=== PATIENT | female | born 1950 | race African-American/Black ===

== ENCOUNTER 2017-06-02 07:39 | Outpatient (CLI) | payer OTHER, MEDICARE ==
[2017-06-02] MEDS ORDERED: LIDOCAINE 1%, 20 ML MDV 20 ML ONE (07:52)
[2017-06-02] MEDS ORDERED: IOHEXOL 50 ML IV ONE (07:52)
[2017-06-02] MEDS ORDERED: BUPIVACAINE /PF 0.25% 30 ML VIAL INJ ONE (07:57)
[2017-06-02] MEDS ORDERED: methylPREDNISolone ACETATE 80 MG/ML ONE (07:58)
[2017-06-02] MEDS ORDERED: NS 0 ML IV ONE (08:01)
== END 2017-06-02 18:58 | disposition home or self-care (01) ==
LOC: SRD 07:39
PROVIDERS: ATTEND Orthopaedic Surgery
PROC: BQ00YZZ Plain Radiography of Right Hip using Other Contrast (ICD-10-PCS; principal; 2017-06-02)
DX: M25.551 Pain in right hip (principal)
CPT/HCPCS: 27093; 73525; J1040; J2001; J3490; Q9967

== ENCOUNTER 2022-06-18 11:39 | Emergency (ER) | payer OTHER, MEDICARE ==
[~2022-06-18] VITALS: Ht 162.6 cm; Wt 69.4 kg
[2022-06-18 11:51] VITALS: BP_SYST 102
--- NOTE | 2022-06-18 12:10 | NUR ---
RECEIVED PT FROM CONSTANTIN VILLALTA. PT JUAN RAWLS FOR SYCOPE EPISODE, UNWITNESSED. PT IS AAOX4. ON R/A. DENIES N/V/D/C. NORMAL S1S2 NOTED. SKIN INTACT. DISTAL PULSES NORMAL. SIDERAILS UP X2. PT PLACED ON TELEMONITOR. VSS. AT BEDSIDE.
--- NOTE | 2022-06-18 12:12 | NUR ---
DR. BECK AT BEDSIDE TO ASSESS PT.
[2022-06-18 12:20] LABS: BASOPHILS % (AUTO) 0.8 % (0.0-2.0); EOSINOPHILS # (AUTO) 0.1 K/uL (0.0-0.4); EOSINOPHILS % (AUTO) 2.2 % (0.0-4.0); HEMATOCRIT 37.4 % (36-48); HEMOGLOBIN 12.4 g/dL (12.0-16.0); LYMPHOCYTES # (AUTO) 0.8 K/uL (1.0-5.5); LYMPHOCYTES % (AUTO) 22.1 % (20.5-51.5); MEAN CORPUSCULAR HEMOGLOBIN 32 pg (27-31); MEAN CORPUSCULAR HGB CONC 33 % (32-36); MEAN CORPUSCULAR VOLUME 95 fL (79.0-98.0); MONOCYTES # (AUTO) 0.5 K/uL (0.0-1.0); MONOCYTES % (AUTO) 14.1 % (1.7-9.3); NEUTROPHILS # (AUTO) 2.3 K/uL (1.8-7.7); NEUTROPHILS % (AUTO) 60.8 % (40.0-70.0); PLATELET COUNT (AUTO) 209 K/uL (130-430); RED BLOOD CELL COUNT(AUTO) 3.94 MIL/uL (4.2-6.2); RED CELL DISTRIBUTION WIDTH 13.8 % (9.0-15.0); WHITE BLOOD COUNT (AUTO) 3.8 K/uL (4.8-10.8)
--- NOTE | 2022-06-18 12:32 | NUR ---
PT TAKEN FOR CT HEAD WITHOUT CONTRAST.
[2022-06-18 12:40] LABS: ANION GAP 7 (5-15); CALCIUM 8.6 mg/dL (8.4-11.0); CHLORIDE 99 mmol/L (98-107); CREATININE 0.78 mg/dL (0.55-1.30); GLUCOSE 130 mg/dL (70-99); UREA NITROGEN, BLOOD 15 mg/dL (8-21)
--- NOTE | 2022-06-18 12:40 | NUR ---
PT BACK FROM HEAD CT AND PLACED ON MONITOR. PT EDUCATED THAT SHE WILL NEED TO DRINK WATER AND HOLD IT FOR U/S PELVIC. PT VEBALIZED UNDERSTANDING.
[2022-06-18 12:45] LABS: ALANINE AMINOTRANSFERASE 28 U/L (12-78); ALBUMIN 3.2 g/dL (3.4-4.8); ASPARTATE AMINOTRANSFERASE 26 U/L (10-37); TOTAL BILIRUBIN 0.3 mg/dL (0.0-1.0)
[2022-06-18 13:10] LABS: BILIRUBIN,URINE NEGATIVE (NEGATIVE); BLOOD, URINE NEGATIVE (NEGATIVE); CLARITY/URINE CLEAR (CLEAR); COLOR,URINE YELLOW (YELLOW); GLUCOSE,URINE NEGATIVE (NEGATIVE); KETONES,URINE NEGATIVE (NEGATIVE); LEUKOCYTE ESTERASE ,URINE NEGATIVE (NEGATIVE); NITRITE, URINE NEGATIVE (NEGATIVE); PH,URINE 7.5 (5.0-8.0); PROTEIN URINE TRACE (NEGATIVE); UROBILINOGEN,URINE 0.2 (0.2-1.0)
--- NOTE | 2022-06-18 13:32 | NUR ---
DR. BECK AT BEDSIDE. PT WILL DISCHARGE HOME. PT AGREED WITH POC.
[2022-06-18 13:42] VITALS: BP_SYST 117
== END 2022-06-18 13:42 | disposition home or self-care (01) ==
LOC: SED 11:39
DX: R55 Syncope and collapse (principal); Z88.5 Allergy status to narcotic agent; Z88.6 Allergy status to analgesic agent; Z79.1 Long term (current) use of non-steroidal anti-inflammatories (NSAID); Z79.899 Other long term (current) drug therapy
CPT/HCPCS: 36415; 70450-TC; 71045; 76376; 80053; 81003; 83605; 85025; 87040; 93005; 99285

== ENCOUNTER 2023-03-07 19:51 | Emergency (ER) | payer OTHER, MEDICARE ==
[~2023-03-07] VITALS: Ht 162.6 cm; Wt 68.0 kg
[2023-03-07 20:51] VITALS: BP_SYST 146; PULSE 81; RESP 18; TEMP 98.2; O2SAT 99
== END 2023-03-07 20:55 | disposition left against medical advice (07) ==
LOC: SED 19:51
DX: S61.316D Laceration without foreign body of right little finger with damage to nail, subsequent encounter (principal); Z53.21 Procedure and treatment not carried out due to patient leaving prior to being seen by health care provider; X58.XXXD Exposure to other specified factors, subsequent encounter
CPT/HCPCS: 99281